=== PATIENT | male | born 1975 | race African-American/Black ===

== ENCOUNTER 2022-06-29 08:18 | Emergency (ER) | payer SELFPAY ==
[~2022-06-29] VITALS: Ht 167.6 cm; Wt 75.0 kg
[2022-06-29 08:25] VITALS: BP 174/117
[2022-06-29] MEDS ORDERED: BUPIVACAINE HCL/PF 0.5% (5MG/ML) 10ML INFIL ONE (08:30)
[2022-06-29] MEDS ORDERED: T3 PO (10:29)
[2022-06-29] MEDS ORDERED: AMOX1TAB16 PO (10:29)
[2022-06-29] MEDS ORDERED: IBUP-2030 PO (10:29)
== END 2022-06-29 11:03 | disposition home or self-care (01) ==
LOC: EDBD 08:18 → ER 08:59
DX: K02.9 Dental caries, unspecified (principal)
CPT/HCPCS: 99281; J3490

== ENCOUNTER 2022-09-25 09:35 | Emergency (ER) | payer MEDICAID ==
[~2022-09-25] VITALS: Ht 180.3 cm; Wt 100.0 kg
[~2022-09-25 09:35] MED LIST: AMOX1TAB16 PO; IBUP-2030 PO; T3 PO
[2022-09-25 09:48] VITALS: BP 164/124
[2022-09-25] MEDS ORDERED: AMLODIPINE 5MG TABLET PO ONE (11:00)
[2022-09-25] MEDS ORDERED: ACETAMINOPHEN 325MG TABLET PO ONE (11:00)
[2022-09-25] MEDS ORDERED: AMLO5TAB4 MT (12:29)
[2022-09-25] MEDS ORDERED: CEPH500C2 MT (12:48)
== END 2022-09-25 12:52 | disposition home or self-care (01) ==
LOC: ER 09:57
DX: I10 Essential (primary) hypertension (principal)
CPT/HCPCS: 99283